=== PATIENT | female | born 1975 | race Caucasian/White ===

== ENCOUNTER 2021-10-03 04:38 | Emergency (ER) | payer OTHER ==
[2021-10-03 05:34] LABS: BASOPHIL 0.3 % (0-2); EOSINOPHIL 2.5 % (0-5); HCT 40.8 % (37.0-47.0); HGB 13.4 g/dl (12.5-16.0); MCH 31.8 pg (25.0-31.0); MCHC 32.8 g/dL (32.0-36.0); MCV 96.7 fL (78.0-100.0); MONOCYTE 10.3 % (0-12); MPV 9.5 fL (6.0-9.5); NEUTROPHIL 56.7 % (41-80); NRBC 0; PLT 279 K/uL (150-400); RBC 4.22 M/uL (4.20-5.40); RDW 12.9 % (11.5-14.0); WBC 8.8 K/uL (4.0-10.5)
[2021-10-03 05:59] LABS: ALBUMIN 3.2 g/dL (3.4-5.0); BILIRUBIN - TOTAL 0.3 mg/dL (0.2-1.0); CREATININE 0.63 mg/dL (0.51-0.95); GLOBULIN (CALCULATION) 3.6 g/dL; POTASSIUM 3.9 mmol/L (3.5-5.1); TOTAL PROTEIN 6.8 g/dL (6.4-8.2)
[2021-10-03 07:28] LABS: BILIRUBIN NEGATIVE (NEGATIVE); BLOOD 1+ Ery/uL (NEGATIVE); CLARITY CLEAR (CLEAR); COLOR YELLOW (YELLOW); GLUCOSE (U) NORMAL (NORMAL); LEUKOCYTES NEGATIVE Leu/uL (NEGATIVE); NITRITE NEGATIVE (NEGATIVE); PROTEIN NEGATIVE (NEGATIVE); UROBILINOGEN 0.2 mg/dL (0.2-1.0)
[2021-10-03 08:28] LABS: BACTERIA TRACE
== END 2021-10-03 08:57 | disposition home or self-care (01) ==
LOC: FER 04:38
PROVIDERS: Internal Medicine
DX: R10.31 Right lower quadrant pain (principal); N93.9 Abnormal uterine and vaginal bleeding, unspecified; Z87.891 Personal history of nicotine dependence
CPT/HCPCS: 36415; 80053; 81001; 83690; 84145; 85025; J1170; J2405; J7030; Q9967